=== PATIENT | female | born 1965 | race Caucasian/White ===

== ENCOUNTER → 2016-11-08 | Outpatient (CLI) | payer MEDICAID ==
[~2016-11-08] MED LIST: ADVIL200 MG PO; AMOXICILLIN250 MG PO; ASPIRIN LO-DOSE81 MG PO; BENADRYL25 MG PO; BENZ O STHETIC TOP; BETASERON0.3 MG SUB-Q; DULCOLAX10 MG R; DULCOLAX5 MG PO; K-TAB ER20 MEQ PO; LEVAQUIN 250 M250 MG PO; LIORESAL DS20 MG PO; LYRICA 150MG C150 MG PO; LYRICA300 MG PO; MAG-OX-400(241400 MG PO; MILK OF MA400 MG/5 M PO; MIRALAX PO527 GM/BOT PO; NEURONTIN300 MG PO; NORCO 5-325 MG1 TAB PO; PEPTO BISMOL LIQ1 ML PO; PERCOCET 5-3251 EACH PO; PERIDEX15 ML PO; PROTONIX40 MG PO; REQUIP1 MG PO; RESTORIL30 MG PO; ROBITUSSIN DM120 ML PO; SALINE NASAL SP88 ML NOSE; THERA-VITE W/ B1 TAB PO; TRAZODONE HCL50 MG PO; TYLENOL/COD#31 TAB PO; TYLENOL325 MG PO; ULTRAM50 MG PO; VESICARE5 MG PO; VITAMIN D1000 UNIT PO; XANAX0.25 MG PO
== END | disposition disaster alternative care site (69) ==
LOC: LJOHN2 11-07 17:05
DX: E03.9 Hypothyroidism, unspecified (principal)

== ENCOUNTER 2016-11-18 05:50 | Day surgery (SDC) | payer MEDICAID ==
[~2016-11-18] VITALS: Ht 162.6 cm; Wt 105.3 kg
--- NOTE | ~2016-11-18 | OR ---
PATIENT'S NAME: JENNIFER PAIGE [facility] AGE: 51 Y [address] ROOM: [place] [address] LOCATION: [facility] ADMIT DATE: 11/18/2016 OR/Procedure Report DISCHARGE DATE: FAMILY PHYSICIAN: JACKIE MARTINEZ MD ATTENDING PHYSICIAN: Jalen Aldridge SURGEON: Jalen Aldridge MD PUBLIC IMPROVEMENT INSPECTOR: Franko Tran MD DATE OF PROCEDURE: 11/18/2016 PREOPERATIVE DIAGNOSIS: Bladder stones. POSTOPERATIVE DIAGNOSIS: Bladder stones. PROCEDURE PERFORMED: Open cystolithotomy. ANESTHESIA: General. COMPLICATIONS: None. ESTIMATED BLOOD LOSS: Minimal. INDICATION FOR PROCEDURE: The patient is a 51-year-old female with neurogenic bladder secondary to multiple sclerosis. The patient has chronic suprapubic catheter in place. During screening cystoscopy, the patient was noted to have 3 large-sized bladder stones present. DESCRIPTION OF PROCEDURE: After informed consent was obtained, the patient was taken to the operating room. A general anesthetic was applied, and she was placed in a supine position. The lower abdomen was prepped and draped in the normal sterile fashion. Once this was achieved, we placed a sterile 24- Mexican Castellon catheter through the suprapubic tract. A midline skin incision was made with a scalpel blade superior and inferior to the suprapubic tract. Electrocautery was used to carry the incision down to the fascial layer, which was then opened with electrocautery. The bladder was identified and opened with scissors. The Castellon catheter was then removed. The bladder stones were identified, grasped with forceps, and removed. Again, 3 stones were removed. Next, the bladder was closed using 3-0 chromic sutures in a running fashion. This was done with a new 24-Mexican Castellon catheter placed. Next, 2-0 Vicryl suture in a running fashion was used to close the muscular layer of the bladder, again with the Castellon catheter in place. At this point, the balloon was then inflated. The fascial layer was closed with a #1 nylon Ethilon suture in a running fashion. The subcuticular layer was closed with interrupted 3-0 Vicryl suture in a simple fashion. The skin was closed with fredy. Closer to the suprapubic site, 2-0 Prolene suture was used to close in a vertical mattress fashion, i.e., to close the skin, and the catheter was PATIENT'S NAME: JENNIFER PAIGE [facility] AGE: 51 Y [address] ROOM: [place] [address] LOCATION: [facility] ADMIT DATE: 11/18/2016 OR/Procedure Report DISCHARGE DATE: FAMILY PHYSICIAN: JACKIE MARTINEZ MD ATTENDING PHYSICIAN: Jalen Aldridge secured with a 2-0 Prolene suture. The wound was then dressed in normal sterile fashion. The patient tolerated the procedure well and went to the recovery room in good condition. MD ERNIE BUSTILLO/maria de jesus /[id number] d: 11/19/16 1452 t: 11/21/16 0952, OPERATIVE SUMMARY
[~2016-11-18 05:50] MED LIST changes: -LEVAQUIN 250 M250 MG PO; -NEURONTIN300 MG PO; -PERCOCET 5-3251 EACH PO; -TRAZODONE HCL50 MG PO
[2016-11-18 07:12] LABS: BASOPHIL % 0.7 %; EOSINOPHIL # 0.2 K/uL (0.0-0.5); EOSINOPHIL % 2.9 %; HEMATOCRIT 48.8 % (33.0-46.0); HEMOGLOBIN 15.5 g/dL (10.0-15.0); IMMATURE GRANULOCYTE % 0.2 %; LYMPHOCYTE # 2.6 K/uL (0.8-4.0); LYMPHOCYTE % 45.1 %; MCHC 31.8 gm/dL (32.0-36.5); MCV 91.4 fl (83.0-98.0); MONOCYTE # 0.6 K/uL (0.0-1.0); MPV 11.3 fl (9.4-12.4); NEUTROPHIL # (ANC) 2.3 K/uL (1.8-7.8); NEUTROPHIL % 40.1 %; NRBC % 0 /100WBC (0-0.00); PLATELET COUNT 221 K/uL (150-450); RBC 5.34 M/uL (3.50-5.50); RDW-CV 15.7 % (11.9-14.6); WBC 5.8 K/uL (4.0-11.0)
[2016-11-18 07:28] LABS: ALBUMIN 3.2 gm/dL (3.5-5.0); ALK PHOS 77 IU/L (33-138); ALT 17 IU/L (12-78); BLOOD UREA NITROGEN 15 mg/dL (6-24); CALCIUM 8.8 mg/dL (8.5-10.5); CHLORIDE 103 mMol/L (96-110); CO2 33 mMol/L (22-32); CREATININE 0.5 mg/dL (0.5-1.1); ESTIMATED GFR (MDRD EQUATION) > 60; SODIUM 141 mMol/L (135-145); TOTAL BILIRUBIN 0.3 mg/dL (0.0-1.5); TOTAL PROTEIN 7.5 g/dL (6.0-8.4)
[2016-11-18 07:31] LABS: ANION GAP 9.9 (10.0-19.0); AST 21 IU/L (10-40); POTASSIUM 4.9 mMol/L (3.7-5.1)
[2016-11-18] MEDS ORDERED: PERCOCET 5-3251 EACH PO (10:10)
[2016-11-18] MEDS ORDERED: LEVAQUIN 250 M250 MG PO (10:10)
[2017-01-31] MEDS ORDERED: NEURONTIN300 MG PO (13:28)
[2017-01-31] MEDS ORDERED: TRAZODONE HCL50 MG PO (13:32)
== END 2016-11-18 11:41 ==
LOC: GSDC 05:50
PROVIDERS: Urology
PROC: 0TCB0ZZ Extirpation of Matter from Bladder, Open Approach (ICD-10-PCS; principal; 2016-11-18)
DX: N21.0 Calculus in bladder (principal); N31.9 Neuromuscular dysfunction of bladder, unspecified; G35 Multiple sclerosis; F32.9 Major depressive disorder, single episode, unspecified; E66.9 Obesity, unspecified; Z79.899 Other long term (current) drug therapy; Z87.891 Personal history of nicotine dependence
CPT/HCPCS: J0690; J1885; J1956; J2001; J7120

== ENCOUNTER 2016-11-19 14:06 | Inpatient (IN) | payer MEDICAID ==
[~2016-11-19] VITALS: Ht 152.4 cm; Wt 102.3 kg
--- NOTE | ~2016-11-19 | HP ---
PATIENT'S NAME: ROYAL [facility] AGE: 51 Y [address] ROOM: [place] [address] LOCATION: [facility] ADMIT DATE: 11/19/2016 History & Physical DISCHARGE DATE: FAMILY PHYSICIAN: JACKIE MARTINEZ MD ATTENDING PHYSICIAN: SHAHNAZ YANES V DATE OF SERVICE: CHIEF COMPLAINT: Fever and hypoxia. HISTORY OF PRESENT ILLNESS: The patient is a 51-year-old female with advanced multiple sclerosis and multiple related complications, resident of a [facility] facility. She has undergone an elective cystostomy with large bladder stone extraction yesterday. Today, at the shelter, she was noted to have saturation of 84% on room air and a temperature of 101.4. She was sent to [facility] for further evaluation. At this point, the patient's main complaints are shortness of breath and pain at the operative site. I do appreciate some urine leaking from the suprapubic catheter. The patient is extremely poor historian and endorses multiple complaints, which is understandable given her poor functional status. She does admit to fever. She does admit to some dyspnea. No nausea, vomiting, diaphoresis, or syncope. REVIEW OF SYSTEMS: All systems have been reviewed and negative aside from pertinent positives as mentioned above. PAST MEDICAL HISTORY: Extracted from her records; 1. Multiple sclerosis. 2. Severe debility. 3. Bedbound. 4. Neurogenic bladder. 5. Bladder stone status post extraction. 6. Cardiomegaly. 7. Anxiety. 8. History of a complicated hospitalization about some 1 year ago where the patient had a severe sepsis after dental extraction and required intubation and ICU stay. 9. Recurrent UTIs. PATIENT'S NAME: ROYAL [facility] AGE: 51 Y [address] ROOM: [place] [address] LOCATION: [facility] ADMIT DATE: 11/19/2016 History & Physical DISCHARGE DATE: FAMILY PHYSICIAN: JACKIE MARTINEZ MD ATTENDING PHYSICIAN: SHAHNAZ YANES V 10. Hypomagnesemia. 11. Morbid obesity. 12. Hypokalemia. 13. Hypothyroidism. 14. Paraplegia. 15. Complete restless legs syndrome. 16. Insomnia. SOCIAL HISTORY: The patient carries no active toxic habits and resides at a [facility] facility. FAMILY HISTORY: Reviewed and is noncontributory due to a known underlying etiology for her presentation. CURRENT MEDICATIONS: Include recently started on; 1. Percocet 5/325 one tablet every 4 hours. 2. Baclofen. 3. Benadryl. 4. Betaseron. 5. Dulcolax p.r.n. 6. Levaquin, postprocedure. 7. Lyrica. 8. Magnesium oxide. 9. MiraLax. 10. Vitamin. 11. Pantoprazole. 12. Requip. 13. Restoril. 14. VESIcare. 15. Vitamin D. 16. Potassium supplementation. 17. Xanax. 18. Tylenol. 19. Milk of magnesia. 20. Robitussin. 21. Ultram. PHYSICAL EXAMINATION: VITAL SIGNS: Pulse 97; respirations 18; temperature 101.3; saturating 84% on room air, improving to mid 90s on 2 L nasal cannula; and blood pressure is 122/76. GENERAL APPEARANCE: Morbidly obese, chronically ill, elderly female, in no PATIENT'S NAME: JENNIFER PAIGE [facility] AGE: 51 Y [address] ROOM: [place] [address] [facility] ADMIT DATE: 11/19/2016 History & Physical DISCHARGE DATE: FAMILY PHYSICIAN: JACKIE MARTINEZ MD ATTENDING PHYSICIAN: SHAHNAZ YANES V acute distress. NEUROLOGIC: Not performed due to known MS. EYES: Pupils are equal, round, and reactive to light. LYMPHATIC: Shows no cervical lymphadenopathy. ENDOCRINE: Shows no thyromegaly. LUNGS: Reveal dry crackles in all melton of auscultation, more pronounced on the left. HEART: Reveals regular rate and rhythm without appreciable murmurs, gallops, or rubs. GI: Reveals abdomen is soft, nontender, and nondistended. : Reveals fresh fredy with a suprapubic catheter draining bloody urine, though not a brisk flow. The suprapubic catheter is draining urine. VASCULAR: 2+ pedal pulses. MUSCULOSKELETAL: Shows no muscle or joint abnormalities. PSYCHIATRIC: Reveals slowed mood, cognition, and affect. Studies performed in the ER are significant for a negative D-dimer. EKG, which revealed sinus rhythm at 70 beats per minute with poor R-wave progression. No ST-segment or T-wave abnormalities. No evidence of RV strain. LAB RESULTS: Significant for an unremarkable basic metabolic profile. ProBNP of 373. White count 9.7, hemoglobin 14.9, platelets 171, and no bands. Influenzas are negative. Procalcitonin is negative. Urinalysis shows full field of rbc's and 500 leukocytes. Chest x-ray shows very poor inspiratory effort with CHF versus generalized atelectasis. ASSESSMENT AND PLAN: This is a 51-year-old female, who will be admitted with; 1. Systemic inflammatory response syndrome. We will treat the patient with Zosyn assuming that she may have an infection, which is related to a postprocedure state. We will follow up urine cultures and blood cultures. We will support her perfusion with intravenous fluids as her respiratory status allows. 2. Status post open cystolithotomy with drainage of urine. I discussed the case with Dr. Maya, who recommended antibiotics and monitoring for patency of the suprapubic drain. I will put in for a formal Urology consult. 3. Acute hypoxic respiratory failure. This is likely related to atelectasis, possibly related to opioid use after the procedure. We will supply the patient with incentive spirometry. We will support her with supplemental oxygen. We will do 2-dimensional echocardiogram to further define her heart function as she does have a history of cardiomegaly, but no overt congestive heart failure. PATIENT'S NAME: JENNIFER PAIGE [facility] AGE: 51 Y [address] ROOM: [place] [address] LOCATION: [facility]U ADMIT DATE: 11/19/2016 History & Physical DISCHARGE DATE: FAMILY PHYSICIAN: JACKIE MARTINEZ MD ATTENDING PHYSICIAN: SHAHANZ YANES V 4. Pain control. Continue with pain control as ordered after the procedure. 5. Goals of care. The patient is recorded as DO NOT RESUSCITATE/DO NOT INTUBATE and we will respect those wishes. 6. Multiple scleroses, which is advanced, noted. 7. Deep venous thrombosis prophylaxis. We will have to be pharmacologic if she is at very high risk of developing a deep venous thrombosis. 8. Additional management will depend on clinical course. Time dedicated to the patient's encounter is 35 minutes. MD TIMOTHY HUNTLEY/maria de jesus /[id number] D: [id number] T: [id number] HISTORY & PHYSICAL
--- NOTE | ~2016-11-19 | ECHO ---
Transthoracic Echocardiography Report (TTE) Demographics Patient Name JENNIFER PAIGE Date of Study 11/20/2016 Patient Number [id number] Visit Number [id number] Date of 1965 Room Number G6338 Gender Female Number Age 51 year(s) Referring [facility] Analysis Specialist Rosemary NEWTON, RDCS Physician MD Hoffman Physician Interpreting Randy Watson MD Air Intercept Controller Physician Supervising Ordering Corrie Cheung MD, MD/MLP Physician Nurse Stress Destination Imagination Coordinator Conclusions Contractility Score Summary Normal Left Ventricular contractility was noted. Summary Technically difficult exam due to patient's body habitus. Mild to moderate concentric left ventricular hypertrophy with normal internal dimension,EF and WM. Trivial to mild MR,AR,TR and OK. Procedure Type of Study TTE procedure:2D Echocardiogram, M-Mode, Doppler , Color Doppler. Procedure Date Date: 11/20/2016 Start: 11:02 AM Study Location: Inpatient Portable Technical Quality: Adequate visualization Additional Indications:sepsis Appropriate Use Criteria: 7 Patient Status: Routine HR: 92 bpm BP: 116/62 mmHg M-Mode/2D Measurements LV Diastolic Dimension: 4.32 cm LV Systolic Dimension: 2.95 cm LV Septum Diastolic: 1.56 cm LV PW Diastolic: 1.65 cm AO Root Dimension: 2 cm Cardiac Output: 5 l/min AV Cusp Separation: 1.8 cm RV Diastolic Dimension: 2.52 cm LA volume: 27 ml LVOT: 2 cm RV Base: 2.98 cm LVOT VTI: 17.3 cm RV Mid: 2.67 cm LV Stroke volume: 54.32 ml TAPSE: 2.52 cm TDI-S': 12.5 cm/s Doppler Measurements AV Peak Velocity: 1.43 m/s MV Peak E-Wave: 0.72 m/s AV Peak Gradient: 8.18 mmHg MV Peak A-Wave: 0.65 m/s AV Mean Gradient: 6 mmHg MV E/A Ratio: 1.11 LVOT Peak Velocity: 0.79 m/s MV P1/2t: 59 msec AV P1/2t: 5495 msec TR Gradient:14.29 mmHg PV Peak Velocity: 0.93 m/s Estimated RAP:10 mmHg PV Peak Gradient: 3.49 mmHg Estimated RVSP: 24 mmHg Estimated PASP: 24.29 mmHg E' Septal Velocity: 0.05 m/s A' Septal Velocity: 0.06 m/s E' Lateral Velocity: 0.07 m/s A' Lateral Velocity: 0.08 m/s Findings Left Ventricle Mild to moderate concentric left ventricular hypertrophy with normal internal dimension,EF and WM. Right Ventricle Normal right ventricle structure and function. Left Atrium Normal left atrial size. Right Atrium Normal right atrial size. Mitral Valve Trivial mitral regurgitation by color Doppler. Aortic Valve There is trivial aortic regurgitation by color Doppler. Tricuspid Valve Trivial tricuspid regurgitation by color Doppler. Pulmonic Valve Trivial pulmonic valve regurgitation by color Doppler. Pericardial Effusion No evidence of pericardial effusion. Pleural Effusion No evidence of pleural effusion. Contractility Score LV regional wall motion:(0-Non visualized 1-Normal 2-Hypokinesis 3-Akinesis 4-Dyskinesis 5-Aneurysm) Signature dtt: Shirley Padilla dtd: 11/20/16 1102 Physician Self Edit
--- NOTE | ~2016-11-19 | CON ---
PATIENT'S NAME: ROYAL [facility] AGE: 51 Y [address] ROOM: [place] [address] LOCATION: GPCU ADMIT DATE: 11/19/2016 Consultation DISCHARGE DATE: FAMILY PHYSICIAN: JACKIE MARTINEZ MD ATTENDING PHYSICIAN: SHAHNAZ YANES V DATE OF CONSULTATION: 11/20/2016 REFERRING PHYSICIAN: CLIFTON RAMSEY MD CONSULTATION NOTE HISTORY OF PRESENT ILLNESS: The patient is a 51-year-old female with advanced multiple sclerosis, residing in [place] [facility]. The patient has secondary neurogenic bladder and has had a chronic suprapubic catheter in place. The patient underwent open cystolithotomy 2 days ago secondary to bladder stones. Postoperatively, she did well and was discharged back to the [place] [facility]. Yesterday, the patient developed fevers and complained of shortness of breath and incisional pain. She was also noted to have some leakage around the suprapubic catheter which is not unusual considering recent placement. Currently, the patient is doing well. Her creatinine is 0.4. Her white count is 9.7 and her H and H are 14.9 and 46.3. Currently, the patient has minimal complaints, although she is reluctant to get out of bed. I strongly recommended to her that she get up in her chair. PAST MEDICAL HISTORY: See detailed history and physical. MEDICATIONS: See history and physical. SOCIAL HISTORY: The patient is a nonsmoker with no history of alcohol abuse. PHYSICAL EXAMINATION: GENERAL APPEARANCE: A 51-year-old female with advanced multiple sclerosis. Lying in bed comfortably. VITAL SIGNS: Stable and afebrile. LUNGS: Occasional crackles noted near the bases. CARDIAC: Regular rhythm and rate. ABDOMEN: Soft, nontender, and normoactive bowel sounds throughout. Suprapubic catheter in place and draining clear urine. IMPRESSION: The patient is status post open cystolithotomy, currently doing well. The PATIENT'S NAME: ROYAL [facility] AGE: 51 Y [address] ROOM: [place] [address] LOCATION: GPCU ADMIT DATE: 11/19/2016 Consultation DISCHARGE DATE: FAMILY PHYSICIAN: JACKIE MARTINEZ MD ATTENDING PHYSICIAN: SHAHNAZ YANES V patient has blood cultures pending. PLAN: The patient is doing well. If she remains afebrile, can consider transfer to [place] [facility] tomorrow. MD ERNIE BUSTILLO/maria de jesus /[id number] d: 11/20/162309 t: 11/21/16 0952, CONSULTATION REPORT
--- NOTE | ~2016-11-19 | DS ---
PATIENT'S NAME: JENNIFER PAIGE [facility] AGE: 51 Y [address] ROOM: [facility] [place], [place] [address] LOCATION: GPCU ADMIT DATE: 11/19/2016 Discharge Summary DISCHARGE DATE: 11/22/2016 FAMILY PHYSICIAN: Aaliyah Cronin MD ATTENDING PHYSICIAN: Casey Denton V PRIMARY DIAGNOSES: 1. Sepsis. 2. Enterococcus faecalis urinary tract infection. 3. Acute hypoxic respiratory failure. 4. Functional quadriplegia secondary to multiple sclerosis. 5. Restless legs syndrome. PRINCIPAL PROCEDURE: None was indicated. LABORATORY DATA: On admission WBC was 9.7, prior to discharge was 8.7; H and H on admission was 14.9/46.3, prior to discharge were 13.5/42.5; platelet on admission was 171, was stable throughout the hospital stay. Sodium on admission was 141, was stable throughout hospital stay. Creatinine was 0.4, was stable throughout the hospital stay. BUN was 7, was stable throughout the hospital stay. Bicarb was 29, was also stable throughout the hospital stay. UA; leukocytes 500, nitrite negative, wbc's 5 to 10, bacteria few. Ferritin 62.5. Influenza was negative. Procalcitonin was less than 0.05. Urine culture was Enterococcus faecalis 10,000 to 50,000. Blood culture, no growth until discharge. RADIOLOGY: Chest x-ray was reported as cardiac silhouette is enlarged, suboptimal inspiration, has increased bronchovascular markings. I cannot exclude interstitial edema and vascular congestion. Linear atelectasis is present at mid right lung. KUB is reported as suspected constipation with no evidence of obstruction. Echocardiogram is reported as normal left ventricular contractility was noted, left ventricle [id number] concentric LVH with normal dimensions and EF and wall motion. Normal right ventricular structure and function. HOSPITAL COURSE: For history of present illness, please take a look at the H and P which was done by Dr. Denton. The patient was admitted to Progressive Care Unit for hypoxia as well as fever and source of fever was thought to be probably secondary to urinary tract infection given the fact the patient has just recently had a urological procedure done. There was also concern for possible pneumonia as well. However, chest x-ray did not reveal much given poor inspiratory effort by the patient. However, the patient was managed as per the sepsis order pathway, was put on cefepime from the first day of the hospital stay. This was continued, and by the next day of the hospital stay, the patient's acute hypoxic respiratory failure had significantly improved, PATIENT'S NAME: JENNIFER PAIGE [facility] AGE: 51 Y [address] ROOM: [place] [address] LOCATION: GPCU ADMIT DATE: 11/19/2016 Discharge Summary DISCHARGE DATE: 11/22/2016 FAMILY PHYSICIAN: Aaliyah Cronin MD ATTENDING PHYSICIAN: Casey Denton V and by the end of the day, was successfully weaned off oxygen. The patient was continued on the cefepime, and urine culture ultimately came out to be Enterococcus faecalis, even though the colony-forming unit was not significant, was not greater than 100,000 colony-forming units. The patient remained afebrile throughout her hospital stay. Her T-max which was obtained was 99.1 the day prior to discharge and remained afebrile for close to 24 hours prior to discharge. She was successfully weaned off oxygen and was saturating fine on room air. On the day of discharge, abdominal distention was observed and a KUB which was done confirmed constipation, and plan was for the patient to get all her laxatives by the time she gets to the residential, so that she will not have accident while en route to the residential given the fact that the patient has also functional quadriplegia secondary to multiple sclerosis. On the day of discharge, vital signs were stable. The patient was in a stable clinical condition and she was discharged. DISCHARGE INSTRUCTIONS: Include, the patient is to receive all her laxatives today when she arrives at the residential. MEDICATIONS ON DISCHARGE: Include, 1. Protonix 40 mg p.o. daily. 2. MiraLAX 17 g p.o. q.48 hours. 3. Lyrica 300 mg p.o. q.h.s. 4. Lyrica 150 mg p.o. q.a.m. 5. Florastor 250 mg p.o. twice daily. 6. Restoril 30 mg p.o. at bedtime. 7. Tylenol 325 mg p.o. q.4 hours p.r.n. 8. Dulcolax 5 mg p.o. daily. 9. Dulcolax 10 mg rectally daily p.r.n. 10. Benadryl 25 mg p.o. q.h.s. 11. Robitussin 10 mL p.o. q.4 hours p.r.n. 12. Milk of magnesia 30 mL p.o. daily p.r.n. 13. Baclofen 40 mg p.o. q.h.s. 14. Betaseron 0.3 mg subcu q.48 hours. 15. Multivitamin one tab p.o. daily. 16. VESIcare 5 mg p.o. daily. 17. Vitamin D3, 1000 units p.o. daily. 18. Xanax 0.125 mg p.o. twice daily. 19. Baclofen 10 mg p.o. 3 times daily. 20. Ultram 100 mg p.o. q.6 hours p.r.n. 21. Mag-Ox 400 mg p.o. daily. 22. Requip 2 mg p.o. q.h.s. 23. Percocet 1 to 2 tablets p.o. q.4 hours p.r.n. 24. Augmentin 875/125 mg one tablet b.i.d. for 5 days. PATIENT'S NAME: JENNIFER PAIGE [facility] AGE: 51 Y [address] ROOM: [place] [address] [facility] ADMIT DATE: 11/19/2016 Discharge Summary DISCHARGE DATE: 11/22/2016 FAMILY PHYSICIAN: Aaliyah Cronin MD ATTENDING PHYSICIAN: Casey Denton V MD EDWIGE MEDRANO/maria de jesus /[id number] d: 11/22/16 2347 t: 11/27/16 1352, DISCHARGE SUMMARY
--- NOTE | ~2016-11-19 | ER ---
PATIENT'S NAME: ROYAL [facility] AGE: 51 Y [address] ROOM: [place] [id number] LOCATION: GPCU ADMIT DATE: 11/19/2016 ER/Outpatient Report DISCHARGE DATE: FAMILY PHYSICIAN: JACKIE MARTINEZ MD ATTENDING PHYSICIAN: SHAHNAZ YANES V Time of Arrival: 1406 hours. Time of Evaluation/Seen: 1406 hours. IDENTIFICATION: A 51-year-old female. CHIEF COMPLAINT: Weakness. HISTORY OF PRESENT ILLNESS: The patient is a 51-year-old female from [facility] who does not ambulate, does not move her lower extremities, and is wheelchair bound secondary to MS. She has had fever and low sats of 83%. The patient had bladder stones removed yesterday. She has had some hematuria from her catheter today. She complains of suprapubic pain around where the surgery was. She denies any cough, shortness of breath, lightheadedness, or dizziness. She is demanding her pain pill when she arrives here. She was prescribed Percocet so we did give her Percocet as her initial blood pressure was 122/76. PAST MEDICAL HISTORY: ALLERGIES: NO KNOWN DRUG ALLERGIES. CURRENT MEDICATIONS: 1. Baclofen 40 mg 1 time a day. 2. Benadryl 25 mg 1 time a day for insomnia. She also was requesting that, but her next blood pressure was low and at this point, I have refused that. 3. Betaseron solution, reconstituted 0.3 mg subcutaneous 1 time a day. 4. Dulcolax 5 mg 1 time a day. 5. Levaquin 250, 1 time a day for 7 days, starting on November 19. It does not look like she has had that yet today. It is due at 8:00 p.m. 6. Lyrica 150 mg 1 time a day. 7. Lyrica 150 mg 2 capsules 1 time a day. 8. Mag-Ox 400 mg 1 time a day. 9. MiraLAX 17 g 1 time a day. 10. Multivitamin daily. PATIENT'S NAME: ROYAL [facility] AGE: 51 Y [address] ROOM: [place] [address] LOCATION: GPCU ADMIT DATE: 11/19/2016 ER/Outpatient Report DISCHARGE DATE: FAMILY PHYSICIAN: JACKIE MARTINEZ MD ATTENDING PHYSICIAN: SHAHNAZ YANES V 11. Pantoprazole 40 mg daily. 12. Requip 1 mg at bedtime, for restless legs. 13. Restoril 30 mg at bedtime. 14. VESIcare 5 mg daily. 15. Vitamin D 1000 international units daily. 16. K-Tab 20 mEq 2 times a day. 17. No nonsteroidals for 5 days after procedure on 11/18/2016. No nonsteroidals for 7 days prior to the procedure. 18. Xanax 0.125 mg at bedtime. 19. Baclofen 20 mg t.i.d. 20. Acetaminophen 325 mg q.4 hours p.r.n. 21. Dulcolax suppository p.r.n. 22. Other p.r.n. medications include: Milk of magnesia. 23. Percocet 5/325. 24. Robitussin DM. 25. Ultram is to be held from 11/18 to 11/23, when the Percocet is ordered; otherwise, she has 100 mg q.6 hours p.r.n. pain. MEDICAL PROBLEMS: 1. History of UTI. 2. Bladder stones. 3. Respiratory failure. 4. Severe sepsis, intubated 1 year ago after dental extraction. 5. Cardiomegaly. 6. Hypomagnesemia. 7. Multiple sclerosis. 8. Neurogenic bladder with suprapubic catheter. 9. Anxiety. 10. Morbid obesity. 11. Hypokalemia. 12. Hypothyroidism. 13. Paraplegia. 14. Restless legs syndrome. 15. Insomnia. SOCIAL HISTORY: The patient resides at [facility]. Tobacco use, denies. Alcohol use, denies. Drug use, denies. REVIEW OF SYSTEMS: All systems reviewed and are negative other than what is noted in the HPI. PHYSICAL EXAMINATION: VITAL SIGNS: Weight 107.5 kg, blood pressure 122/76, pulse 97, respiratory rate is 18, temperature 101.3, and sats 84% on room air with a good waveform. PATIENT'S NAME: JENNIFER PAIGE [facility] AGE: 51 Y [address] ROOM: [id number] [place], [place] [id number] LOCATION: GPCU ADMIT DATE: 11/19/2016 ER/Outpatient Report DISCHARGE DATE: FAMILY PHYSICIAN: JACKIE MARTINEZ MD ATTENDING PHYSICIAN: SHAHNAZ YANES V GENERAL: A pleasant 51-year-old female, in moderate distress. She was placed on O2 at 2 L per nasal cannula. HEENT: Head; normocephalic and atraumatic. Eyes; pupils equal and reactive to light and accommodation. Extraocular movements intact. TMs are not visualized. Oropharynx, benign. NECK: Supple. No lymphadenopathy. LUNGS: Clear to auscultation with a few scattered wheezes. HEART: Regular rate and rhythm. ABDOMEN: Bowel sounds present. Protuberant, soft, nondistended, and tender in suprapubic. The patient does have a dressing around her suprapubic catheter that has serosanguineous drainage on it. She would not let me remove that at all or explore any further due to discomfort. EXTREMITIES: She has heel protectors on both of her feet. She has moderate 2+ edema. No calf tenderness. NEUROLOGIC: The patient is alert and oriented x4. Cranial nerves 2 through 12 grossly intact. Motor strength 5/5 in upper extremities and 1/5 in the lower extremities. LABORATORY DATA AND IMAGING STUDIES: The patient has an EKG, normal sinus rhythm at 70 beats per minute. No acute ST elevation or depression. Nonspecific ST-T wave changes. Influenza A and B negative. ProBNP is elevated at 373. D-dimer is normal at 0.34. Procalcitonin is less than 0.05. Sodium 141, potassium 4.3, chloride 104, CO2 of 29, BUN 7, creatinine 0.4, and blood sugar 92. Liver enzymes normal. CPK 66, CK-MB 0.7, and troponin I is less than 0.040. Hemoglobin 14.9, hematocrit 46.3, platelets 171,000, white count 9.7, and 77% segs. INR 1.1. Lactate 0.7. UA from the catheter; 5-10 white cells, full field of red cells, and 2-5 epithelial cells. Blood cultures x2 are pending at this time, and urine culture is pending. Chest x-ray, 1 view reveals fluid in the fissure in the right middle lobe, suboptimal inspiration, and increased pulmonary vascularity. No definite infiltrate. The patient was given IV fluids at 150 mL/h, then a 300 mL bolus as her blood pressure dropped in the 92 systolic, and then change it 200 mL/hours as her blood pressure came back above 100. Percocet 5/325 was given for pain. IMPRESSION AND PLAN: 1. Fever of unknown source. Urine cultures are pending. Antibiotics were initiated, Zosyn and Levaquin per the sepsis protocol. The patient meets systemic inflammatory response syndrome criteria, not severe sepsis. She was given a fluid bolus here with improvement of her blood pressure, it was never below 90 systolic. 2. Status post cystolithotomy with drainage of urine. Dr. Yanes evaluated the patient in the emergency room and Dr. Maya was consulted. 3. Acute hypoxic respiratory failure. The patient has no evidence of pneumonia. She is not acutely short of breath. She has been using PATIENT'S NAME: JENNIFER PAIGE [facility] AGE: 51 Y [address] ROOM: [place] [address] [facility] ADMIT DATE: 11/19/2016 ER/Outpatient Report DISCHARGE DATE: FAMILY PHYSICIAN: JACKIE MARTINEZ MD ATTENDING PHYSICIAN: SHAHNAZ YANES V postoperative narcotics, Percocet. We did give her one here. She was placed on O2 per nasal cannula. Her BNP is mildly elevated, and we will continue to monitor. 4. Multiple sclerosis, advanced. The patient is a DNR. Again Dr. Yanes evaluated the patient in the emergency room and planned for admission to U telemetry. MIMI WILLOUGHBY MD CAR/modl /[id number] d: 11/20/16 1224 t: 11/22/16 0922, OUTPATIENT REPORT
[~2016-11-19 14:06] MED LIST changes: +LEVAQUIN 250 M250 MG PO; +PERCOCET 5-3251 EACH PO
[2016-11-19 14:38] LABS: BILIRUBIN URINE NEGATIVE (NEGATIVE); BLOOD URINE 250 /UL (NEGATIVE); COLOR URINE RED (YELLOW); GLUCOSE URINE NEGATIVE (NEGATIVE); KETONE URINE 50 mg/dL (NEGATIVE); LEUKOCYTES URINE 500 /UL (NEGATIVE); NITRITE URINE NEGATIVE (NEGATIVE); PROTEIN URINE 30 mg/dL (NEGATIVE); SPEC GRAVITY URINE 1.015 (1.003-1.035); TURBIDITY URINE 3+ (CLEAR); UROBILINOGEN URINE NORMAL (NORMAL)
[2016-11-19 14:43] LABS: BACTERIA URINE FEW (NEGATIVE); RBC URINE FULL FIELD #/HPF (NEGATIVE); WBC CLUMPS URINE RARE (NEGATIVE)
[2016-11-19 15:02] LABS: HEMATOCRIT 46.3 % (33.0-46.0); HEMOGLOBIN 14.9 g/dL (10.0-15.0); MCHC 32.2 gm/dL (32.0-36.5); MCV 90.1 fl (83.0-98.0); MPV 11.2 fl (9.4-12.4); RBC 5.14 M/uL (3.50-5.50); RDW-CV 15.5 % (11.9-14.6); WBC 9.7 K/uL (4.0-11.0)
[2016-11-19 15:13] LABS: INR - (THERAPEUTIC) 1.1 (0.9-1.1); PROTIME 11.6 SECONDS (9.6-11.1); PTT 26 SECONDS (25-32)
[2016-11-19 15:22] LABS: PLATELET COUNT 171 K/uL (150-450)
[2016-11-19 15:25] LABS: ABSOLUTE NEUTROPHIL CT (ANC) 7.5 K/uL (1.8-7.8); LYMPHOCYTE # 1.3 K/uL (0.8-4.0); LYMPHOCYTE % 13 %; SEGMENTED NEUTROPHIL # 7.5 K/uL (1.8-7.8); SEGMENTED NEUTROPHIL % 77 %
[2016-11-19 15:47] LABS: ALBUMIN 2.8 gm/dL (3.5-5.0); ALK PHOS 78 IU/L (33-138); ALT 14 IU/L (12-78); ANION GAP 12.3 (10.0-19.0); AST 14 IU/L (10-40); CALCIUM 8.3 mg/dL (8.5-10.5); CHLORIDE 104 mMol/L (96-110); CO2 29 mMol/L (22-32); CPK 66 IU/L (21-215); CREATININE 0.4 mg/dL (0.5-1.1); ESTIMATED GFR (MDRD EQUATION) > 60; POTASSIUM 4.3 mMol/L (3.7-5.1); SODIUM 141 mMol/L (135-145); TOTAL BILIRUBIN 0.3 mg/dL (0.0-1.5)
[2016-11-19 15:50] LABS: BLOOD UREA NITROGEN 7 mg/dL (6-24)
--- NOTE | 2016-11-20 05:21 | NUR ---
Significant Event: PATIENT ALERT AND ORIENTED X3, UNABLE TO VEBALIZE EXACT DATE BUT THIS IS BASELINE PER PATIENT. PATIENT HAD SURGICAL REMOVAL OF STONES FROM BLADDER ON 11/18 AND HAS MARIUSZ PRESENT VERTICALLY ABOVE AND BELOW SUPRAPUBIC SITE. PATIENT DENIES PAIN THROUGHOUT MOST OF SHIFT. DID REQUEST PERCOCET ON 1 OCCASION WITH RELIEF NOTED. PATIENT DOES HAVE WATERY SEROSANGUENOUS DRAINAGE FROM ABDOMINAL SITE. FLAT AFFECT NOTED. PATIENT HAS HX OF MS AND IS ONLY ABLE TO MOVE RUE. REFUSES REPOSITIONING FREQUENTLY. REFUSES LOVENOX. REFUESED BERATHING TX. AFEBRILE. PATIENT CURRENTLY ON 1 L O2. DOES NOT APPEAR TO BE IN DISTRESS. Follow up: CONTINUE TO MONITOR PER POC.
--- NOTE | 2016-11-20 17:26 | NUR ---
Significant Event: Patient A/O x 3. Full lift. Turn q2h, but refuses repositioning. States that she is afraid of falling and will not left anyone reposition her. Lung sounds slightly coarse the last 2 assessments in bases. Started IV fluids in LFA PIV at 75 ml/h. Flat affect. Gave percocet x 1 at 1328 for incisional pain at suprapubic catheter site. Dressing changed this shift. Follow up: Continue as per plan of care.
[2016-11-21 04:50] LABS: BASOPHIL % 0.3 %; EOSINOPHIL # 0.1 K/uL (0.0-0.5); EOSINOPHIL % 1.2 %; HEMATOCRIT 41.2 % (33.0-46.0); HEMOGLOBIN 12.9 g/dL (10.0-15.0); IMMATURE GRANULOCYTE % 0.4 %; LYMPHOCYTE # 1.6 K/uL (0.8-4.0); LYMPHOCYTE % 14.6 %; MCH 28.5 pg (27.0-34.0); MCHC 31.3 gm/dL (32.0-36.5); MCV 91.2 fl (83.0-98.0); MONOCYTE # 0.7 K/uL (0.0-1.0); MONOCYTE % 6.1 %; MPV 11.6 fl (9.4-12.4); NEUTROPHIL # (ANC) 8.3 K/uL (1.8-7.8); NEUTROPHIL % 77.4 %; NRBC % 0 /100WBC (0-0.00); PLATELET COUNT 199 K/uL (150-450); RBC 4.52 M/uL (3.50-5.50); RDW-CV 15.5 % (11.9-14.6); WBC 10.7 K/uL (4.0-11.0)
[2016-11-21 05:11] LABS: ANION GAP 13.9 (10.0-19.0); BLOOD UREA NITROGEN 8 mg/dL (6-24); CALCIUM 8.3 mg/dL (8.5-10.5); CHLORIDE 106 mMol/L (96-110); CO2 24 mMol/L (22-32); CREATININE 0.2 mg/dL (0.5-1.1); ESTIMATED GFR (MDRD EQUATION) > 60; POTASSIUM 3.9 mMol/L (3.7-5.1); SODIUM 140 mMol/L (135-145)
--- NOTE | 2016-11-21 06:57 | NUR ---
Significant Event: Patient alert and oriented x2-3, not always to toy. complained of pain at HS and 2 percocet were given, relief reported. Patient reports she slept poorly. Continues to refuse repositioning. Refused lovenox. Ordered only a banana for supper but did eat all of it with assist. Patient continues to have flat affect. IVF ABX without issue.' Follow up: continue to monitor per POC
--- NOTE | 2016-11-21 12:30 | NUR ---
Patient lives at [facility] per demographics. Spoke with Maritza at [facility] and they plan on patient returning to them when ready for discharge. Introduced self and role of care management to patient. Patient lives at [facility] and plans to return there. Will follow.
--- NOTE | 2016-11-21 17:04 | NUR ---
Significant Event: VSS AND RA. 2 TABS PERCOCET X2 FOR ABDOMINAL PAIN, WITH RELIEF. ABDOMEN INCISION IS STAPLED WITH SMALL AMOUNT SEROSANGUINOUS DRAINAGE PRESENT; SITE WAS CLEANSED AND A NEW DRESSING APPLIED. REPOSITIONED Q2H AND PRN, REFUSES LIFT TO RECLINER. IV SALINE LOCKED. IV ABX CONTINUE. Follow up: CONTINUE PLAN OF CARE; ? D/C TO [facility].
[2016-11-22 04:25] LABS: BASOPHIL % 0.3 %; EOSINOPHIL # 0.3 K/uL (0.0-0.5); EOSINOPHIL % 3.6 %; HEMATOCRIT 42.5 % (33.0-46.0); HEMOGLOBIN 13.5 g/dL (10.0-15.0); IMMATURE GRANULOCYTE % 0.2 %; LYMPHOCYTE # 1.9 K/uL (0.8-4.0); LYMPHOCYTE % 21.7 %; MCHC 31.8 gm/dL (32.0-36.5); MCV 91.2 fl (83.0-98.0); MONOCYTE # 0.6 K/uL (0.0-1.0); MONOCYTE % 6.6 %; MPV 11.6 fl (9.4-12.4); NEUTROPHIL # (ANC) 5.9 K/uL (1.8-7.8); NEUTROPHIL % 67.6 %; NRBC % 0 /100WBC (0-0.00); PLATELET COUNT 221 K/uL (150-450); RBC 4.66 M/uL (3.50-5.50); RDW-CV 15.4 % (11.9-14.6); WBC 8.7 K/uL (4.0-11.0)
--- NOTE | 2016-11-22 04:31 | NUR ---
Significant ev ents: Pt A/Ox3, repetitive and needing reassurance frequently. VSS. No complaints of pain. Suprapubic santa in place. Benadryl for difficulty falling asleep. IV antibiotics continue. Repositioned frequently. Follow up: Back to [facility] today.
--- NOTE | 2016-11-22 11:00 | NUR ---
Patient can return to [facility] today. Called and spoke with Maritza at [facility] and they will pick patient up at 1300. Orders faxed to Maritza. Nurse will call nurse to nurse report. Patient to transfer at 1300 to [facility] via [facility].
[2017-01-31] MEDS ORDERED: NEURONTIN300 MG PO (13:28)
[2017-01-31] MEDS ORDERED: TRAZODONE HCL50 MG PO (13:32)
== END 2016-11-22 13:13 | DRG 862 ==
LOC: GMED 14:06 → GPCU 18:17
PROVIDERS: Family Medicine; Hospitalist; Internal Medicine; ADMIT Internal Medicine
DX: T81.4XXA Infection following a procedure, initial encounter (principal); A41.9 Sepsis, unspecified organism; J96.01 Acute respiratory failure with hypoxia; R65.20 Severe sepsis without septic shock; R53.2 Functional quadriplegia; N39.0 Urinary tract infection, site not specified; Z68.41 Body mass index [BMI] 40.0-44.9, adult; B95.2 Enterococcus as the cause of diseases classified elsewhere; G35 Multiple sclerosis; G25.81 Restless legs syndrome; Z99.3 Dependence on wheelchair; K59.00 Constipation, unspecified; N31.9 Neuromuscular dysfunction of bladder, unspecified; F41.9 Anxiety disorder, unspecified; E66.01 Morbid (severe) obesity due to excess calories; G47.00 Insomnia, unspecified
CPT/HCPCS: C9113; J0690; J0692; J1650; J1885; J1956; J2001; J2543; J7030; J7050; J7120

== ENCOUNTER → 2016-12-06 | Outpatient (CLI) | payer MEDICAID ==
[~2016-12-06] MED LIST changes: +NEURONTIN300 MG PO; +TRAZODONE HCL50 MG PO
[2016-12-06 09:51] LABS: ALBUMIN 3.1 gm/dL (3.5-5.0); ALK PHOS 75 IU/L (33-138); ALT 21 IU/L (12-78); ANION GAP 11.8 (10.0-19.0); AST 18 IU/L (10-40); BLOOD UREA NITROGEN 15 mg/dL (6-24); CALCIUM 8.9 mg/dL (8.5-10.5); CHLORIDE 105 mMol/L (96-110); CO2 30 mMol/L (22-32); CREATININE 0.5 mg/dL (0.5-1.1); ESTIMATED GFR (MDRD EQUATION) > 60; POTASSIUM 3.8 mMol/L (3.7-5.1); SODIUM 143 mMol/L (135-145); TOTAL BILIRUBIN 0.4 mg/dL (0.0-1.5); TOTAL PROTEIN 7.4 g/dL (6.0-8.4)
== END | disposition disaster alternative care site (69) ==
LOC: LJOHN2 12-05 11:56
PROVIDERS: Internal Medicine
DX: E83.42 Hypomagnesemia (principal); E87.6 Hypokalemia; E03.9 Hypothyroidism, unspecified; G35 Multiple sclerosis; N31.2 Flaccid neuropathic bladder, not elsewhere classified; G58.9 Mononeuropathy, unspecified

== ENCOUNTER → 2016-12-16 | Outpatient (CLI) | payer MEDICAID | END | disposition disaster alternative care site (69) | LOC: GRAD 10:49 | PROC: BT10YZZ Fluoroscopy of Bladder using Other Contrast (ICD-10-PCS; principal; 2016-12-16) | DX: N39.0 Urinary tract infection, site not specified (principal); N32.89 Other specified disorders of bladder ==

== ENCOUNTER 2017-02-03 12:00 | Day surgery (SDC) | payer MEDICAID ==
[~2017-02-03] VITALS: Ht 152.4 cm
--- NOTE | ~2017-02-03 | OR ---
[facility]GE[facility] 51 Y [address] ROOM: [place] [address] LOCATION: [facility] ADMIT DATE: 02/03/2017 OR/Procedure Report DISCHARGE DATE: FAMILY PHYSICIAN: JACKIE MARTINEZ MD ATTENDING PHYSICIAN: Jalen Aldridge SURGEON: Jalen Aldridge MD PHOSPHORIC ACID OPERATOR: DATE OF PROCEDURE: 02/03/2017 PREOPERATIVE DIAGNOSES: 1. Bladder spasm with secondary suprapubic catheter site leakage. 2. Neurogenic bladder with suprapubic catheter. POSTOPERATIVE DIAGNOSES: 1. Bladder spasm with secondary suprapubic catheter site leakage. 2. Neurogenic bladder with suprapubic catheter. PROCEDURE PERFORMED: 1. Cystoscopy with Botox injection 300 units. 2. Suprapubic catheter change. ANESTHESIA: MAC. COMPLICATIONS: None. INDICATION FOR PROCEDURE: The patient is a 51-year-old female with a neurogenic bladder, long-time suprapubic catheter. The patient previously had a large bladder stone removed and now has persistent leakage around her suprapubic catheter site secondary to bladder spasms which have not responded to anticholinergics. DETAILS OF PROCEDURE: After informed consent was obtained, the patient was taken to the operating room. A MAC anesthetic was applied. She was placed in a dorsal lithotomy position. The groin area and lower abdomen were prepped and draped in normal sterile fashion. Her suprapubic catheter was clamped. Cystoscope was introduced into the urethra and bladder without difficulty. The patient was noted to have calcifications at the base of her bladder which were irrigated out. Following this, the Botox injection needle was introduced, and I injected 300 units of Botox in 30 separate sites along the bladder. The patient was noted to have significant calcifications on her catheter balloon; therefore, I decided to change it. The balloon was deflated, and the catheter removed. A new 24-Honduran catheter was inserted and the balloon inflated. Cystoscopy was then performed, which showed good positioning of the PATIENT'S NAME: JENNIFER PAIGE [facility] AGE: 51 Y [address] ROOM: [place] [address] LOCATION: [facility] ADMIT DATE: 02/03/2017 OR/Procedure Report DISCHARGE DATE: FAMILY PHYSICIAN: JACKIE MARTINEZ MD ATTENDING PHYSICIAN: Jalen Aldridge catheter. The patient tolerated the procedure well and was transferred to the recovery room in good condition. MD ERNIE BUSTILLO/toml /[id number] d: 02/03/178 t: 02/14/17 1454, OPERATIVE SUMMARY
[2017-02-03 13:06] LABS: BASOPHIL % 0.3 %; EOSINOPHIL # 0.1 K/uL (0.0-0.5); EOSINOPHIL % 1.4 %; HEMATOCRIT 49.8 % (33.0-46.0); IMMATURE GRANULOCYTE % 0.3 %; LYMPHOCYTE # 1.9 K/uL (0.8-4.0); LYMPHOCYTE % 30.4 %; MCH 28.8 pg (27.0-34.0); MCHC 32.1 gm/dL (32.0-36.5); MCV 89.6 fl (83.0-98.0); MONOCYTE # 0.5 K/uL (0.0-1.0); MONOCYTE % 7.4 %; MPV 10.9 fl (9.4-12.4); NEUTROPHIL # (ANC) 3.8 K/uL (1.8-7.8); NEUTROPHIL % 60.2 %; NRBC % 0 /100WBC (0-0.00); PLATELET COUNT 231 K/uL (150-450); RBC 5.56 M/uL (3.50-5.50); WBC 6.3 K/uL (4.0-11.0)
[2017-02-03 13:15] LABS: RDW-CV 17.9 % (11.9-14.6)
[2017-02-03 13:27] LABS: ALBUMIN 3.1 gm/dL (3.5-5.0); ALK PHOS 65 IU/L (33-138); ALT 18 IU/L (12-78); ANION GAP 10.5 (10.0-19.0); AST 22 IU/L (10-40); BLOOD UREA NITROGEN 11 mg/dL (6-24); CALCIUM 8.6 mg/dL (8.5-10.5); CHLORIDE 106 mMol/L (96-110); CO2 28 mMol/L (22-32); CREATININE 0.5 mg/dL (0.5-1.1); ESTIMATED GFR (MDRD EQUATION) > 60; POTASSIUM 4.5 mMol/L (3.7-5.1); SODIUM 140 mMol/L (135-145); TOTAL BILIRUBIN 0.6 mg/dL (0.0-1.5); TOTAL PROTEIN 7.4 g/dL (6.0-8.4)
== END 2017-02-03 16:20 | disposition disaster alternative care site (69) ==
LOC: GSDC 12:00 → GPOC 17:00
PROVIDERS: Urology
PROC: 3E0K8GC Introduction of Other Therapeutic Substance into Genitourinary Tract, Via Natural or Artificial Opening Endoscopic (ICD-10-PCS; principal; 2017-02-03)
PROC: 0T29X0Z Change Drainage Device in Ureter, External Approach (ICD-10-PCS; 2017-02-03)
DX: N31.9 Neuromuscular dysfunction of bladder, unspecified (principal); T83.89XA Other specified complication of genitourinary prosthetic devices, implants and grafts, initial encounter; N32.89 Other specified disorders of bladder; G35 Multiple sclerosis; F32.9 Major depressive disorder, single episode, unspecified; G47.00 Insomnia, unspecified; M83.9 Adult osteomalacia, unspecified; G25.81 Restless legs syndrome; Z87.442 Personal history of urinary calculi; Z79.899 Other long term (current) drug therapy; Z98.890 Other specified postprocedural states; Y83.8 Other surgical procedures as the cause of abnormal reaction of the patient, or of later complication, without mention of misadventure at the time of the procedure
CPT/HCPCS: J0585; J1956; J2001; J7030

== ENCOUNTER → 2017-02-21 | Outpatient (CLI) | payer MEDICAID ==
[2017-02-21 18:56] LABS: BILIRUBIN URINE NEGATIVE (NEGATIVE); BLOOD URINE 250 /UL (NEGATIVE); COLOR URINE YELLOW (YELLOW); GLUCOSE URINE NEGATIVE (NEGATIVE); KETONE URINE NEGATIVE (NEGATIVE); LEUKOCYTES URINE 500 /UL (NEGATIVE); NITRITE URINE NEGATIVE (NEGATIVE); PROTEIN URINE 30 mg/dL (NEGATIVE); SPEC GRAVITY URINE 1.015 (1.003-1.035); UROBILINOGEN URINE NORMAL (NORMAL)
[2017-02-21 18:57] LABS: TURBIDITY URINE 3+ (CLEAR)
[2017-02-21 19:22] LABS: AMORPHOUS URINE 2+ (NEGATIVE); BACTERIA URINE MANY (NEGATIVE); CRYSTALS URINE CALCIUM OXALATE (NEGATIVE); MUCUS URINE 1+ (NEGATIVE)
== END | disposition disaster alternative care site (69) ==
LOC: LJOHN2 17:35
PROVIDERS: Internal Medicine
DX: N39.0 Urinary tract infection, site not specified (principal)

== ENCOUNTER → 2017-03-07 | Outpatient (CLI) | payer MEDICAID ==
[2017-03-07 08:46] LABS: BASOPHIL % 0.9 %; EOSINOPHIL # 0.1 K/uL (0.0-0.5); EOSINOPHIL % 1.7 %; HEMATOCRIT 52.8 % (33.0-46.0); HEMOGLOBIN 16.9 g/dL (10.0-15.0); IMMATURE GRANULOCYTE % 0.2 %; LYMPHOCYTE # 1.8 K/uL (0.8-4.0); MCH 29.5 pg (27.0-34.0); MCV 92.3 fl (83.0-98.0); MONOCYTE # 0.3 K/uL (0.0-1.0); MONOCYTE % 7.3 %; MPV 10.9 fl (9.4-12.4); NEUTROPHIL # (ANC) 2.4 K/uL (1.8-7.8); NEUTROPHIL % 51.9 %; NRBC % 0 /100WBC (0-0.00); PLATELET COUNT 234 K/uL (150-450); RBC 5.72 M/uL (3.50-5.50); RDW-CV 18.2 % (11.9-14.6); WBC 4.7 K/uL (4.0-11.0)
[2017-03-07 09:07] LABS: CALCIUM 8.8 mg/dL (8.5-10.5); CREATININE 0.4 mg/dL (0.5-1.1); ESTIMATED GFR (MDRD EQUATION) > 60
[2017-03-07 09:16] LABS: ANION GAP 12.3 (10.0-19.0); CHLORIDE 106 mMol/L (96-110); CO2 27 mMol/L (22-32); POTASSIUM 4.3 mMol/L (3.7-5.1); SODIUM 141 mMol/L (135-145)
[2017-03-07 09:17] LABS: ALBUMIN 3.4 gm/dL (3.5-5.0); ALK PHOS 73 IU/L (33-138); ALT 21 IU/L (12-78); AST 20 IU/L (10-40); BLOOD UREA NITROGEN 8 mg/dL (6-24); TOTAL BILIRUBIN 0.3 mg/dL (0.0-1.5); TOTAL PROTEIN 7.2 g/dL (6.0-8.4)
== END | disposition disaster alternative care site (69) ==
LOC: LJOHN2 03-06 04:48
PROVIDERS: Internal Medicine
DX: E83.42 Hypomagnesemia (principal); E87.6 Hypokalemia; E03.9 Hypothyroidism, unspecified; G35 Multiple sclerosis; N31.2 Flaccid neuropathic bladder, not elsewhere classified; G58.9 Mononeuropathy, unspecified

== ENCOUNTER → 2017-03-14 | Outpatient (CLI) | payer MEDICAID ==
[2017-03-14 09:52] LABS: BILIRUBIN URINE NEGATIVE (NEGATIVE); BLOOD URINE 250 /UL (NEGATIVE); COLOR URINE YELLOW (YELLOW); GLUCOSE URINE NEGATIVE (NEGATIVE); KETONE URINE 5 mg/dL (NEGATIVE); LEUKOCYTES URINE 500 /UL (NEGATIVE); NITRITE URINE POSITIVE (NEGATIVE); PROTEIN URINE 100 mg/dL (NEGATIVE); TURBIDITY URINE 4+ (CLEAR); UROBILINOGEN URINE NORMAL (NORMAL)
[2017-03-14 10:08] LABS: RBC URINE FULL FIELD #/HPF (NEGATIVE); WBC URINE FULL FIELD #/HPF (NEGATIVE)
[2017-03-14 10:09] LABS: AMORPHOUS URINE 1+ (NEGATIVE); BACTERIA URINE MANY (NEGATIVE); MUCUS URINE 1+ (NEGATIVE)
== END | disposition disaster alternative care site (69) ==
LOC: LJOHN2 09:35
PROVIDERS: Urology
DX: N39.0 Urinary tract infection, site not specified (principal)

== ENCOUNTER → 2017-04-05 | Outpatient (CLI) | payer MEDICAID ==
[2017-04-05 17:31] LABS: BILIRUBIN URINE NEGATIVE (NEGATIVE); BLOOD URINE 250 /UL (NEGATIVE); COLOR URINE YELLOW (YELLOW); GLUCOSE URINE NEGATIVE (NEGATIVE); KETONE URINE NEGATIVE (NEGATIVE); LEUKOCYTES URINE 500 /UL (NEGATIVE); NITRITE URINE POSITIVE (NEGATIVE); PH URINE 6.5 (4.0-8.0); PROTEIN URINE 30 mg/dL (NEGATIVE); SPEC GRAVITY URINE 1.015 (1.003-1.035); TURBIDITY URINE 4+ (CLEAR); UROBILINOGEN URINE NORMAL (NORMAL)
[2017-04-05 17:42] LABS: RBC URINE 50-100 #/HPF (NEGATIVE); WBC URINE 50-100 #/HPF (NEGATIVE)
[2017-04-05 17:46] LABS: BACTERIA URINE MANY (NEGATIVE); CRYSTALS URINE CALCIUM OXALATE (NEGATIVE); EPITHELIAL URINE 0-2 #/HPF (NEGATIVE)
[2017-04-05 17:49] LABS: AMORPHOUS URINE 3+ (NEGATIVE)
== END | disposition disaster alternative care site (69) ==
LOC: LJOHN2 17:08
PROVIDERS: Internal Medicine
DX: N39.0 Urinary tract infection, site not specified (principal)

== ENCOUNTER → 2017-04-15 | Outpatient (CLI) | payer MEDICAID | END | disposition disaster alternative care site (69) | LOC: GAMB 08:43 | DX: A41.9 Sepsis, unspecified organism (principal); N39.0 Urinary tract infection, site not specified; R41.82 Altered mental status, unspecified; Z79.2 Long term (current) use of antibiotics; Z79.899 Other long term (current) drug therapy | CPT/HCPCS: A0422; A0425; A0427; J7030 ==

== ENCOUNTER → 2017-05-09 | Outpatient (CLI) | payer MEDICAID | LOC: LJOHN2 07:35 | DX: E03.9 Hypothyroidism, unspecified (principal) ==

== ENCOUNTER → 2017-05-15 | Outpatient (CLI) | payer MEDICAID ==
[2017-05-15 17:28] LABS: BILIRUBIN URINE NEGATIVE (NEGATIVE); BLOOD URINE 50 /UL (NEGATIVE); COLOR URINE YELLOW (YELLOW); GLUCOSE URINE NEGATIVE (NEGATIVE); KETONE URINE NEGATIVE (NEGATIVE); LEUKOCYTES URINE 500 /UL (NEGATIVE); NITRITE URINE NEGATIVE (NEGATIVE); PROTEIN URINE NEGATIVE (NEGATIVE); SPEC GRAVITY URINE 1.015 (1.003-1.035); TURBIDITY URINE 3+ (CLEAR); UROBILINOGEN URINE NORMAL (NORMAL)
[2017-05-15 17:44] LABS: AMORPHOUS URINE 2+ (NEGATIVE); BACTERIA URINE MODERATE (NEGATIVE)
== END ==
LOC: LJOHN2 17:20
PROVIDERS: Internal Medicine
DX: N39.0 Urinary tract infection, site not specified (principal); R33.9 Retention of urine, unspecified